=== PATIENT | male | born 1990 | race Caucasian/White ===

== ENCOUNTER 2024-08-01 14:12 | Inpatient (IN) | payer OTHER ==
[2024-08-01 15:22] VITALS: BMI 27.9
[2024-08-01] MEDS ORDERED: NALOXONE (NARCAN) HCL 4 MG/0.1 ML SPRAY NS PRN (16:11)
[2024-08-01] MEDS ORDERED: ACETAMINOPHEN 325 MG TABLET (FP) PO PRN (16:11)
[2024-08-01] MEDS ORDERED: guaiFENesin 600 MG TABLET.ER (FP) PO PRN (16:11)
[2024-08-01] MEDS ORDERED: BENZOCAINE/MENTHOL (CHLORASEPTIC ) LOZENGE MM PRN (16:11)
[2024-08-01] MEDS ORDERED: BENZONATATE 200 MG CAPSULE PO PRN (16:11)
[2024-08-01] MEDS ORDERED: BISMUTH SUBSALICYLATE 524 MG/30 ML PO PRN (16:11)
[2024-08-01] MEDS ORDERED: DICYCLOMINE HCL 10 MG CAPSULE PO PRN (16:11)
[2024-08-01] MEDS ORDERED: LOPERAMIDE HCL 2 MG CAPSULE PO PRN (16:11)
[2024-08-01] MEDS ORDERED: IBUPROFEN 400 MG TABLET (FP) PO PRN (16:11)
[2024-08-01] MEDS ORDERED: diazePAM 5 MG TABLET ONE (18:26)
[2024-08-01] MEDS: diazePAM 5 MG TABLET PO SCH (18:29)
[2024-08-01] MEDS ORDERED: hydrOXYzine PAMOATE 25 MG CAPSULE (FP) PO ONE (18:42)
[2024-08-01] MEDS ORDERED: ONDANSETRON *ODT* 4 MG TABLET ONE (18:42)
[2024-08-01] MEDS: hydrOXYzine PAMOATE 25 MG CAPSULE (FP) PO PRN (18:43)
[2024-08-01] MEDS: ONDANSETRON *ODT* 4 MG TABLET SL PRN (18:43)
[2024-08-01] MEDS: diazePAM 5 MG TABLET PO ONE (20:28)
[2024-08-01] MEDS: MAG HYDROX/AL HYDROX/SIMETH 30 ML UNIT-DOSE CUP PO PRN (22:54)
[2024-08-01] MEDS: MELATONIN 5 MG TABLETS PO SCH (22:54)
[2024-08-01] MEDS: levETIRAcetam 500 MG TABLET (FP) PO SCH (22:55)
[2024-08-01] MEDS: METHOCARBAMOL 500 MG TABLET PO PRN (22:55)
[2024-08-01] MEDS: THIAMINE 100 MG TABLET PO SCH (22:55)
[2024-08-02] MEDS: PRENATAL VITAMINS W/ FOLIC ACID TABLET (FP) PO SCH (10:51)
[2024-08-02] MEDS: PANTOPRAZOLE 40 MG TABLET PO SCH (10:53)
[2024-08-02] MEDS: IBUPROFEN 600 MG TABLET (FP) PO PRN (11:34)
[2024-08-02 17:22] LABS: HEMATOCRIT 41.6 % (35.4-49); HEMOGLOBIN 13.7 GM/dL (11.7-16.9); MCH 30.5 pg (25.7-33.7); MEAN CELL VOLUME 92.5 fl (80-96); MEAN PLT VOLUME 9.2 fl (7.5-11.1); PLATELET COUNT 200 10^3/uL (134-434); RBC 4.49 M/mm3 (4.00-5.60); RDW 13.9 % (11.9-15.9); WHITE BLOOD COUNT 6.1 K/mm3 (4.0-10.0)
[2024-08-02] MEDS: NICOTINE 21 MG/24 HOURS TOPICAL PATCH TD SCH ×2 (17:29→18:08)
[2024-08-02 17:32] LABS: CHLORIDE 103 mmol/L (98-107); POTASSIUM 3.8 mmol/L (3.5-5.1); SODIUM 139 mmol/L (136-145)
[2024-08-02 17:33] LABS: CALCIUM 9.3 mg/dL (8.5-10.1)
[2024-08-02 17:34] LABS: ALBUMIN 3.7 g/dl (3.4-5.0); ANION GAP 5 mmol/L (4-13); CO2 31 mmol/L (21-32); GLUCOSE,RANDOM 111 mg/dL (74-106)
[2024-08-02 17:37] LABS: CREATININE 0.7 mg/dL (0.55-1.3); SGOT/AST 66 U/L (15-37); SGPT/ALT 162 U/L (13-61)
[2024-08-02 17:39] LABS: BILIRUBIN,TOTAL 0.5 mg/dL (0.2-1); TOT PROT 6.8 g/dl (6.4-8.2)
[2024-08-02 17:40] LABS: ALK PHOS 66 U/L (45-117)
[2024-08-02] MEDS: SUVOREXANT 10 MG TABLET PO PRN (22:21)
[2024-08-03] MEDS: diazePAM 5 MG TABLET PO SCH (06:17)
[2024-08-03] MEDS: MAGNESIUM HYDROX 2400MG/30ML ORAL SUSPENSION 30 ML CUP PO PRN (06:18)
[2024-08-03] MEDS: NICOTINE POLACRILEX 4 MG LOZENGE BC PRN (08:16)
[2024-08-03] MEDS: NICOTINE POLACRILEX 4 MG GUM BUC PRN (10:22)
[2024-08-03] MEDS: diazePAM 5 MG TABLET PO PRN (11:23)
[2024-08-03] MEDS: BISACODYL 5 MG TABLET.DR (FP) PO ONE (12:59)
[2024-08-03] MEDS: NALTREXONE HCL 50 MG TABLET PO SCH (12:59)
[2024-08-03] MEDS: PANTOPRAZOLE 40 MG TABLET PO ONE (13:01)
[2024-08-03] MEDS: POLYETHYLENE GLYCOL (HEALTHYLAX) 3350 17 GM PACKET PO PRN (18:27)
[2024-08-04] MEDS: diazePAM 5 MG TABLET PO SCH (05:45)
[2024-08-04] MEDS ORDERED: chlordiazePOXIDE HCL 25 MG CAPSULE PO PRN (18:25)
[2024-08-04] MEDS: propRANOLol HCL 10 MG TABLET PO ONE (18:54)
[2024-08-04] MEDS: chlordiazePOXIDE HCL 25 MG CAPSULE PO ONE (18:55)
[2024-08-04] MEDS: chlordiazePOXIDE HCL 25 MG CAPSULE PO SCH (22:44)
[2024-08-05] MEDS ORDERED: diazePAM 5 MG TABLET PO ONE (06:00)
[2024-08-05 06:29] VITALS: PULSE 74; RESP 16
[2024-08-05 09:13] VITALS: BP 124/93; TEMP 98.7
[2024-08-06] MEDS ORDERED: chlordiazePOXIDE HCL 10 MG CAPSULE PO SCH (05:00)
[2024-08-07] MEDS ORDERED: chlordiazePOXIDE HCL 10 MG CAPSULE PO ONE (05:00)
== END 2024-08-05 11:30 | disposition other institution (70) | DRG 773 ==
LOC: YASAS 14:12 → Y6N 18:37
PROVIDERS: ADMIT Allergy & Immunology; ATTEND Allergy & Immunology
PROC: HZ2ZZZZ Detoxification Services for Substance Abuse Treatment (ICD-10-PCS; principal; 2024-08-01)
DX: F10.230 Alcohol dependence with withdrawal, uncomplicated (principal); F11.10 Opioid abuse, uncomplicated; F14.20 Cocaine dependence, uncomplicated; F12.20 Cannabis dependence, uncomplicated; F17.213 Nicotine dependence, cigarettes, with withdrawal; F19.282 Other psychoactive substance dependence with psychoactive substance-induced sleep disorder; F19.24 Other psychoactive substance dependence with psychoactive substance-induced mood disorder; F32.A Depression, unspecified; E78.5 Hyperlipidemia, unspecified; I10 Essential (primary) hypertension; K70.30 Alcoholic cirrhosis of liver without ascites; K21.9 Gastro-esophageal reflux disease without esophagitis; J45.909 Unspecified asthma, uncomplicated
CPT/HCPCS: 36415; 80053; 80305; 80307; 85027; 86780; 93005; 93010; Q0162

== ENCOUNTER 2024-08-09 15:07 | Inpatient (IN) | payer OTHER ==
[2024-08-09 16:24] VITALS: BMI 28.8
[2024-08-09] MEDS ORDERED: IBUPROFEN 400 MG TABLET (FP) PO PRN (16:45)
[2024-08-09] MEDS ORDERED: BENZONATATE 200 MG CAPSULE PO PRN (16:45)
[2024-08-09] MEDS ORDERED: LOPERAMIDE HCL 2 MG CAPSULE PO PRN (16:45)
[2024-08-09] MEDS ORDERED: POLYETHYLENE GLYCOL (HEALTHYLAX) 3350 17 GM PACKET PO PRN (16:45)
[2024-08-09] MEDS ORDERED: guaiFENesin 600 MG TABLET.ER (FP) PO PRN (16:45)
[2024-08-09] MEDS ORDERED: NALOXONE (NARCAN) HCL 4 MG/0.1 ML SPRAY NS PRN (16:45)
[2024-08-09] MEDS ORDERED: MAGNESIUM HYDROX 2400MG/30ML ORAL SUSPENSION 30 ML CUP PO PRN (16:45)
[2024-08-09] MEDS ORDERED: BENZOCAINE/MENTHOL (CHLORASEPTIC ) LOZENGE MM PRN (16:45)
[2024-08-09] MEDS ORDERED: ALBUTEROL SO4 HFA INHALER IH PRN (16:55)
[2024-08-09] MEDS: PRENATAL VITAMINS W/ FOLIC ACID TABLET (FP) PO SCH (19:18)
[2024-08-09] MEDS: THIAMINE 100 MG TABLET PO SCH (21:17)
[2024-08-09] MEDS: MELATONIN 5 MG TABLETS PO SCH (21:17)
[2024-08-09] MEDS: levETIRAcetam 500 MG TABLET (FP) PO SCH (21:18)
[2024-08-09] MEDS: hydrOXYzine PAMOATE 25 MG CAPSULE (FP) PO PRN (21:19)
[2024-08-09] MEDS ORDERED: ACAMPROSATE CALCIUM 333 MG TABLET.DR PO SCH (22:00)
[2024-08-10] MEDS ORDERED: GABAPENTIN 100 MG CAPSULE PO SCH (10:15)
[2024-08-10] MEDS: ESCITALOPRAM OXALATE 10 MG TABLET PO SCH (10:30)
[2024-08-10] MEDS: NALTREXONE HCL 50 MG TABLET PO SCH (10:40)
[2024-08-10] MEDS: NICOTINE 14 MG/24 HOURS TOPICAL PATCH TD SCH (10:40)
[2024-08-10] MEDS: FAMOTIDINE 20 MG TABLET PO SCH (10:40)
[2024-08-10] MEDS: NICOTINE POLACRILEX 2 MG GUM BUC PRN (10:43)
[2024-08-10 11:43] LABS: HEMATOCRIT 43.1 % (35.4-49); HEMOGLOBIN 14.1 GM/dL (11.7-16.9); MCH 30.7 pg (25.7-33.7); MCHC 32.6 g/dl (32.0-35.9); MEAN CELL VOLUME 94.2 fl (80-96); PLATELET COUNT 170 10^3/uL (134-434); RBC 4.58 M/mm3 (4.00-5.60); RDW 13.8 % (11.9-15.9); WHITE BLOOD COUNT 8.5 K/mm3 (4.0-10.0)
[2024-08-10 11:55] LABS: POTASSIUM 4.1 mmol/L (3.5-5.1)
[2024-08-10 11:57] LABS: ALBUMIN 4.2 g/dl (3.4-5.0); CALCIUM 9.6 mg/dL (8.5-10.1)
[2024-08-10 11:58] LABS: BLOOD UREA NITROGEN 11.4 mg/dL (7-18)
[2024-08-10 12:01] LABS: CREATININE 0.7 mg/dL (0.55-1.3)
[2024-08-10 12:02] LABS: BILIRUBIN,TOTAL 0.3 mg/dL (0.2-1); TOT PROT 7.6 g/dl (6.4-8.2)
[2024-08-10 12:05] LABS: URINE APPEARANCE CLEAR; URINE BILIRUBIN NEGATIVE (NEGATIVE); URINE COLOR YELLOW; URINE GLUCOSE (UA) NEGATIVE (NEGATIVE); URINE KETONE NEGATIVE (NEGATIVE); URINE LEUK ESTERASE NEGATIVE (NEGATIVE); URINE NITRITE NEGATIVE (NEGATIVE); URINE PROTEIN NEGATIVE (NEGATIVE); URINE UROBILINOGEN 0.2 mg/dL (0.2-1.0)
[2024-08-10 12:21] LABS: SYPHILIS W/ RPR CONF NON-REACTIVE (NONREACTIVE)
[2024-08-10] MEDS: hydrOXYzine PAMOATE 25 MG CAPSULE (FP) PO PRN (17:08)
[2024-08-10] MEDS: GABAPENTIN 300 MG CAPSULE PO SCH (21:09)
[2024-08-10] MEDS: MAG HYDROX/AL HYDROX/SIMETH 30 ML UNIT-DOSE CUP PO PRN (21:27)
[2024-08-11] MEDS: MELATONIN 5 MG TABLETS PO PRN (21:35)
[2024-08-12] MEDS: hydrOXYzine PAMOATE 25 MG CAPSULE (FP) PO PRN (02:29)
[2024-08-14] MEDS: IBUPROFEN 600 MG TABLET (FP) PO PRN (18:20)
[2024-08-14] MEDS: MELATONIN 5 MG TABLETS PO PRN (21:04)
[2024-08-14] MEDS: GABAPENTIN 300 MG CAPSULE PO SCH (21:04)
[2024-08-16] MEDS: GABAPENTIN 100 MG CAPSULE PO ONE (14:57)
[2024-08-16] MEDS: GABAPENTIN 300 MG CAPSULE PO SCH (21:05)
[2024-08-17] MEDS: ESCITALOPRAM OXALATE 10 MG TABLET PO SCH (10:45)
[2024-08-17] MEDS: LIDOCAINE 5% TOPICAL PATCH TP SCH (16:00)
[2024-08-17] MEDS: BACLOFEN 10 MG TABLET (FP) PO SCH (21:29)
[2024-08-17] MEDS: LIDOCAINE PATCH REMOVAL MC SCH (21:53)
[2024-08-18] MEDS: ACETAMINOPHEN 325 MG TABLET (FP) PO PRN (08:35)
[2024-08-18] MEDS: GABAPENTIN 400 MG CAPSULE PO SCH (13:07)
[2024-08-18] MEDS: MIRTAZAPINE 15 MG TABLET (FP) PO SCH (21:08)
[2024-08-18] MEDS ORDERED: MIRTAZAPINE 15 MG TABLET (FP) PO SCH (22:00)
[2024-08-20 05:46] VITALS: RESP 16
[2024-08-22] MEDS: NALTREXONE MICROSPHERES (VIVITROL) 380 MG DISP.SYRIN IM ONE (10:37)
[2024-08-23 06:04] VITALS: BP 124/70; PULSE 77; TEMP 97.5
== END 2024-08-23 09:17 | disposition home or self-care (01) | DRG 772 ==
LOC: YASAS 15:07 → Y3W 18:50
PROVIDERS: ADMIT Psychiatry & Neurology Pain Medicine; ATTEND Psychiatry & Neurology Pain Medicine
PROC: HZ42ZZZ Group Counseling for Substance Abuse Treatment, Cognitive-Behavioral (ICD-10-PCS; principal; 2024-08-09)
DX: F11.20 Opioid dependence, uncomplicated (principal); F10.20 Alcohol dependence, uncomplicated; F14.20 Cocaine dependence, uncomplicated; F17.210 Nicotine dependence, cigarettes, uncomplicated; F19.282 Other psychoactive substance dependence with psychoactive substance-induced sleep disorder; F10.280 Alcohol dependence with alcohol-induced anxiety disorder; F19.24 Other psychoactive substance dependence with psychoactive substance-induced mood disorder; F41.1 Generalized anxiety disorder; F32.A Depression, unspecified; E78.5 Hyperlipidemia, unspecified; I10 Essential (primary) hypertension; J45.909 Unspecified asthma, uncomplicated; K74.60 Unspecified cirrhosis of liver; M54.50 Low back pain, unspecified; G89.29 Other chronic pain
CPT/HCPCS: 36415; 80053; 80305; 80307; 81003; 85027; 86780; 86803; 87811; 93005; 93010; J0475; J2315